=== PATIENT | male | born 1955 | race Caucasian/White ===

== ENCOUNTER 2016-10-28 05:39 | Emergency (ER) | payer OTHER ==
[~2016-10-28] VITALS: Ht 170.2 cm; Wt 79.5 kg
[2016-10-28] MEDS ORDERED: MELA3 PO (05:43)
[2016-10-28] MEDS ORDERED: PERTUSS(ACELL),DIPH,TET VAC/PF 0.5 ML VIAL IM ONE (06:00)
[2016-10-28] MEDS ORDERED: OxyCODONE HCL/ACETAMINOPHEN 5-325 MG TABLET PO ONE (06:00)
[2016-10-28 06:29] VITALS: BP 135/83
[2016-10-28] MEDS ORDERED: SILVER SULFADIAZINE 1% 25 GM CREAM TP ONE (06:30)
== END 2016-10-28 07:09 | disposition home or self-care (01) ==
LOC: EMS 05:39
DX: T23.261A Burn of second degree of back of right hand, initial encounter (principal)
CPT/HCPCS: 16020; 90471; 90715; 99284